=== PATIENT | male | born 1990 | race Caucasian/White ===

== ENCOUNTER 2017-02-11 07:08 | Emergency (ER) | payer SELFPAY ==
[2017-02-11 07:19] VITALS: BP 138/87; PULSE 84; TEMP 99; BMI 27.4
--- NOTE | 2017-02-11 08:30 | PDOC ---
History of Present Illness - General Chief Complaint: Sore Throat Stated Complaint: SORE THROAT Time Seen by Provider: 02/11/17 08:24 History Source: Patient Exam Limitations: No Limitations - History of Present Illness Initial Comments: 02/11/17 08:24 received from Main ER waiting , here for c/o pain and fevers 24-48 hours. has headache pain in her pain sore throat pain runny nose with clear drainage, and moist nonproductive cough. has generalized body aches and [id number] medications not resolving. 02/11/17 13:39 Timing/Duration: unsure Severity: mild, moderate Associated Symptoms: reports: fever/chills, headaches, malaise, nausea/vomiting Past History - Travel Traveled outside of the country in the last 30 days: No Close contact w/someone who was outside of country & ill: No - Past Medical History Allergies/Adverse Reactions: Allergies Allergy/AdvReac Type Severity Reaction Status Date / Time No Known Allergies Allergy Verified 02/11/17 07:10 Home Medications: Ambulatory Orders NK [No Known Home Medication] 02/11/17 COPD: No - Suicide/Smoking/Psychosocial Hx Smoking History: Never smoked Have you smoked in the past 12 months: No Information on smoking cessation initiated: No Hx Alcohol Use: No Drug/Substance Use Hx: No Substance Use Type: None Review of Systems - Review of Systems Able to Perform ROS?: Yes Is the patient limited [place] proficient: Yes Constitutional: Yes: Symptoms Reported, See HPI, Fever, Loss of Appetite, Malaise, Weakness HEENTM: Yes: Symptoms Reported, See HPI, Nose Congestion, Throat Pain, Mouth Pain Respiratory: Yes: Symptoms reported, See HPI, Cough, Wheezing Integumentary: Yes: See HPI. No: Symptoms Reported All Other Systems: Reviewed and Negative *Physical Exam - Vital Signs Last Vital Signs Temp Pulse Resp BP Pulse Ox 99.0 F 84 18 138/87 100 02/11/17 07:10 02/11/17 07:10 02/11/17 07:10 02/11/17 07:10 02/11/17 07:10 - Physical Exam General Appearance: Yes: Nourished, Appropriately Dressed, Apparent Distress, Mild Distress HEENT: positive: AJAY (Classie), Normal ENT Inspection, TMs Normal, Rhinorrhea, Sinus Tenderness. negative: Pharynx Normal (with posterior sinus drainage noted , beefy red) Neck: positive: Supple, Lymphadenopathy (R), Lymphadenopathy (L). negative: Tender Respiratory/Chest: positive: Lungs Clear (but coarse inspiratory and expiratory breath sounds), Normal Breath Sounds Musculoskeletal: positive: Normal Inspection. 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, Fully Oriented, Alert, Normal Mood/ Affect, Normal Response, Motor Strength 5/5 *DC/Admit/Observation/Transfer Diagnosis at time of Disposition: Acute pharyngitis Qualifiers: Pharyngitis/tonsillitis etiology: unspecified etiology Qualified Code(s): J02.9 - Acute pharyngitis, unspecified - Discharge Dispostion Disposition: HOME Condition at time of disposition: Stable Admit: No - Referrals Referrals: Clovis Santos [Primary Care Provider] - - Patient Instructions Printed Discharge Instructions: DI for Pharyngitis/Tonsillopharyngitis -- Adult Additional Instructions: Rest, drink lots of fluids: Teas, water, soups Eat cold things: Ice cream, ice pops, ice chips Saltwater gargles Steamy showers/seem to face break up mucus Avoid contact with others until fevers and pain resolved Lots of handwashing and good hygiene, this is contagious Azithromycin as directed Tylenol or Motrin for fever and pain Followup with private physician in one to 2 days as needed if not improving Return to emergency department for worsened symptoms, fevers, dehydration - Post Discharge Activity Forms/Work/School Notes: Back to Work
== END 2017-02-11 08:35 | disposition home or self-care (01) ==
LOC: JERFT 07:08 → JER 07:08 → JERFT 08:35
DX: J02.9 Acute pharyngitis, unspecified (principal)
CPT/HCPCS: 99281-25

== ENCOUNTER 2021-12-24 13:22 | Emergency (ER) | payer OTHER ==
[2021-12-24 14:02] VITALS: BP 115/71; PULSE 75; RESP 18; TEMP 98; BMI 27.9
[2021-12-24] MEDS ORDERED: KETOROLAC TROMETHAMINE 30 MG/1 ML VIAL IM ONE (14:42)
[2021-12-24] MEDS ORDERED: METHOCARBAMOL 500 MG TABLET PO ONE (14:42)
[2021-12-24] MEDS ORDERED: METHOCARBAMOL 500 MG TABLET ONE (15:01)
[2021-12-24] MEDS ORDERED: KETOROLAC TROMETHAMINE 30 MG/1 ML VIAL ONE (15:01)
== END 2021-12-24 15:10 | disposition home or self-care (01) ==
LOC: JERFT 13:22
PROC: 3E023GC Introduction of Other Therapeutic Substance into Muscle, Percutaneous Approach (ICD-10-PCS; principal; 2021-12-24)
DX: G44.319 Acute post-traumatic headache, not intractable (principal); M62.838 Other muscle spasm; V49.40XA Driver injured in collision with unspecified motor vehicles in traffic accident, initial encounter
CPT/HCPCS: 99284-25

== ENCOUNTER 2023-12-17 22:42 | Emergency (ER) | payer OTHER ==
[2023-12-17 22:47] VITALS: BP 130/77; PULSE 66; RESP 18; TEMP 98.4; BMI 27.4
[2023-12-17] MEDS ORDERED: IBUPROFEN 600 MG TABLET (FP) PO ONE (23:18)
[2023-12-17] MEDS: IBUPROFEN 600 MG TABLET (FP) PO ONE (23:19)
== END 2023-12-17 23:38 | disposition home or self-care (01) ==
LOC: JERFT 22:42
PROC: 2W3JX1Z Immobilization of Right Finger using Splint (ICD-10-PCS; principal; 2023-12-17)
DX: S69.91XA Unspecified injury of right wrist, hand and finger(s), initial encounter (principal); W23.1XXA Caught, crushed, jammed, or pinched between stationary objects, initial encounter
CPT/HCPCS: 73130-TC-RT-FY; 73140-TC-RT-FY; 99283-25